=== PATIENT | male | born 1950 | race Caucasian/White ===

== ENCOUNTER → 2017-06-08 | Outpatient (CLI) | payer OTHER ==
--- NOTE | 2017-06-08 14:42 | RAD ---
Indication lung nodule. PET/CT was performed from the skull through the proximal thigh. CT was performed from a localization and attenuation purposes as opposed to primary diagnostic purposes. No prior imaging of the chest is available. 15 mCi of FDG was administered. The blood sugar during the examination was 114. On CT the visualized brain appears unremarkable. No significant finding is seen in the neck. In the chest there is some coronary artery calcification. The mediastinum appears unremarkable. A few small mediastinal lymph nodes are noted. No definite pathologic hilar or mediastinal adenopathy is seen. There are several left rib fractures which appear old. There is an 11 mm pulmonary nodule in the left lower lobe. There is a 4 cm cyst seen associated with the right kidney. A definite significant finding in the abdomen or pelvis is not seen. Occasional diverticula are seen associated with the sigmoid colon. On PET the FDG is physiologically distributed in the visualized brain. No abnormal FDG uptake is seen in the neck. The 11 mm pulmonary nodule in the left lower lobe is moderately FDG avid. Maximum SUVs approximately 3.8. A small malignancy accounting for the nodule is is not excluded. Increased FDG activity in left ribs, consistent with the areas of fracture seen on CT is additionally noted. No abnormal FDG activity is seen in the mediastinum or hilar areas. The FDG is physiologically distributed in the abdomen and pelvis. IMPRESSION: 11 mm pulmonary nodule in the left lower lobe is moderately FDG active. Small malignancy is not excluded accounting for the finding. There is no evidence of any distant metastatic disease and the remainder of the PET/CT examination is essentially unremarkable
== END | disposition home or self-care (01) ==
LOC: PETSC 11:59
PROVIDERS: ATTEND Internal Medicine
DX: R91.1 Solitary pulmonary nodule (principal)
CPT/HCPCS: 78815; A9552